=== PATIENT | male | born 1935 | race Caucasian/White ===

== ENCOUNTER 2018-10-27 20:32 | Emergency (ER) | payer OTHER ==
[~2018-10-27] VITALS: Ht 177.8 cm; Wt 78.0 kg
[~2018-10-27 20:32] MED LIST: ASPIR LOW81 MG PO; CAR60 PO; COL100 PO; COZAAR50 MG PO; METOPROLOL SUCC50 M1 PO; NEXIUM40 MG PO; NORCO1 TA2 PO; PRADAXA75 M1 PO
[2018-10-27 20:37] VITALS: Ht 177.8 cm; Wt 78.0 kg
[2018-10-27 21:08] LABS: BASOPHIL % 0.5 % (0-2); PLATELET COUNT 170 x10^3mcL (130-400)
[2018-10-27 21:09] LABS: RED CELL DISTRIBUTION WIDTH 15.1 % (11.5-14.5)
[2018-10-27 21:18] LABS: CALCIUM 8.9 mg/dL (8.5-10.1); CARBON DIOXIDE 28.6 mmol/L (21-32); CHLORIDE SERUM 103 mmol/L (98-107); CREATININE SERUM 1.1 mg/dL (0.7-1.3); GLUCOSE SERUM 111 mg/dL (74-106); POTASSIUM SERUM 4.3 mmol/L (3.5-5.1); SODIUM SERUM 139 mmol/L (136-145)
[2018-10-27 21:22] LABS: ALBUMIN 3.6 g/dL (3.4-5.0); ALKALINE PHOSPHATASE 81 U/L (46-116); ALT/SGPT 17 U/L (16-63); AST/SGOT 12 U/L (15-37); BILIRUBIN TOTAL 1.54 mg/dL (0.20-1.00); TOTAL PROTEIN, SERUM 7.2 g/dL (6.4-8.2)
[2018-10-27 23:16] VITALS: BP 136/85
== END 2018-10-27 23:16 | disposition home or self-care (01) ==
LOC: ED 20:32
PROVIDERS: Emergency Medicine
DX: I10 Essential (primary) hypertension (principal); R51 Headache; E03.9 Hypothyroidism, unspecified; K21.9 Gastro-esophageal reflux disease without esophagitis
CPT/HCPCS: 36415